=== PATIENT | male | born 1955 | race African-American/Black ===

== ENCOUNTER 2018-06-08 04:59 | Inpatient (IN) ==
[2018-06-08 06:13] LABS: Basophils # 0.1 10*3/uL (0.0-0.2); Basophils % 1.1 % (0.0-0.8); Eosinophils # 0.1 10*3/uL (0.0-0.87); Eosinophils % 1.3 % (0.00-10.9); Hematocrit 44.3 VOL% (42.0-52.0); Hemoglobin 15.1 GM/DL (14.0-18.0); Immature Granulocytes % 0.2 %; Immature Granulocytes Absolute 0.01 #; Lymphocytes # 0.8 10*3/uL (1.4-4.0); Lymphocytes % 16.7 % (21.2-54.2); Mean Corpuscular HGB Conc 34.1 GM/DL (32-36); Mean Corpuscular Hemoglobin 33 PG (27-34); Mean Corpuscular Volume 95.9 FL (87-102); Mean Platelet Volume 9.7 FL (9.6-12.0); Monocytes # 0.3 10*3/uL (0.11-0.8); Monocytes % 6.9 % (1.7-12.7); Neutrophils # 3.4 10*3/uL (1.4-7.4); Neutrophils % 73.8 % (38.7-73.9); Platelet Count 214 T/CUMM (130-400); Red Blood Count 4.62 MC/CUMM (3.8-5.5); Red Cell Distribution Width 14.8 % (9.3-17.3); White Blood Count 4.6 T/CUMM (4-12)
[2018-06-08 06:21] LABS: PT Patient Result 10.3 SECS; Partial Thromboplastin Time 24.4 SECS (0-40)
[2018-06-08 06:46] LABS: Albumin 3.4 G/DL (3.4-5.0); Bilirubin,Total 0.5 MG/DL (0.2-1.0); Calcium 8.9 MG/DL (8.5-10.1); Osmolality,Calculated 272.7 MOS/KG (273-304); Potassium 3.8 MMOL/L (3.5-5.1); Total Protein 7.7 G/DL (6.4-8.3)
[2018-06-08] MEDS ORDERED: CYCLOBENZAPRINE 10 MG TABLET PO PRN (10:02)
[2018-06-08] MEDS ORDERED: ONDANSETRON 4 MG/2 ML VIAL IV PRN (10:02)
[2018-06-08 10:44] LABS: Troponin I Only < 0.015 NG/ML (0.00-0.045)
[2018-06-08] MEDS: ASPIRIN EC 325 MG TABLET PO SCH (14:15)
[2018-06-08] MEDS: BISACODYL 5 MG TABLET PO SCH (14:15)
[2018-06-08] MEDS: PANTOPRAZOLE 40 MG TABLET PO SCH (14:16)
[2018-06-08 14:29] LABS: Apearance,Urine CLEAR (Clear); Bilirubin,Urine Negative (Negative); Blood, Urine Negative (Negative); Glucose,Urine (UA) Negative (Negative); Ketones,Urine Negative (Negative); Mucus,Urine Occasional /LPF (Occasional); Nitrite,Urine Negative (Negative); Protein,Urine Negative; RBC,Urine <1 /HPF (0-4); Squamous Epithelial Cell,Urine Occasional /HPF (0-10); Urine Color Yellow (Yellow); Urine Specific Gravity 1.011 (1.001-1.035); Urine Urobilinogen < 2.0 EU/DL (0.2-1.0); WBC,Urine 1 /HPF (0-6)
[2018-06-08] MEDS: LOVASTATIN 20 MG TABLET PO SCH (17:33)
[2018-06-08 19:21] LABS: Barbiturates Screen,Urine Negative (Negative); Benzodiazepines Screen,Urine Negative (Negative); Cannabinoid Screen,Urine Positive (Negative); Opiate Screen,Urine Negative (Negative); Phencyclidine Screen,Urine Negative (Negative)
[2018-06-08] MEDS: ENOXAPARIN 40 MG/0.4 ML SYRINGE SUBCUT SCH (21:01)
[2018-06-09 02:42] LABS: Basophils % 0.9 % (0.0-0.8); Eosinophils # 0.1 10*3/uL (0.0-0.87); Eosinophils % 2.3 % (0.00-10.9); Hematocrit 46.6 VOL% (42.0-52.0); Hemoglobin 15.8 GM/DL (14.0-18.0); Immature Granulocytes % 0.2 %; Immature Granulocytes Absolute 0.01 #; Lymphocytes % 23.5 % (21.2-54.2); Mean Corpuscular HGB Conc 33.9 GM/DL (32-36); Mean Corpuscular Hemoglobin 33 PG (27-34); Mean Corpuscular Volume 96.7 FL (87-102); Mean Platelet Volume 9.7 FL (9.6-12.0); Monocytes # 0.4 10*3/uL (0.11-0.8); Monocytes % 10.2 % (1.7-12.7); Neutrophils # 2.7 10*3/uL (1.4-7.4); Neutrophils % 62.9 % (38.7-73.9); Platelet Count 230 T/CUMM (130-400); Red Blood Count 4.82 MC/CUMM (3.8-5.5); Red Cell Distribution Width 14.7 % (9.3-17.3); White Blood Count 4.3 T/CUMM (4-12)
[2018-06-09 03:24] LABS: Albumin 3.4 G/DL (3.4-5.0); Bilirubin,Total 1.8 MG/DL (0.2-1.0); Calcium 9.4 MG/DL (8.5-10.1); Osmolality,Calculated 269.8 MOS/KG (273-304); Potassium 3.8 MMOL/L (3.5-5.1); Risk Ratio 3.46; VLDL CHOLESTEROL 20.4 MG/DL
[2018-06-09 04:49] LABS: Troponin I Only < 0.015 NG/ML (0.00-0.045)
[2018-06-09] MEDS: PANTOPRAZOLE 40 MG TABLET PO SCH (08:57)
[2018-06-09] MEDS: ASPIRIN EC 325 MG TABLET PO SCH (08:57)
[2018-06-09] MEDS: BISACODYL 5 MG TABLET PO SCH (09:32)
[2018-06-09] MEDS: LISINOPRIL/HCTZ 20-12.5 MG TABLET PO SCH (18:14)
[2018-06-09] MEDS: LOVASTATIN 20 MG TABLET PO SCH (18:14)
[2018-06-09] MEDS: ENOXAPARIN 40 MG/0.4 ML SYRINGE SUBCUT SCH (20:13)
[2018-06-10 05:22] LABS: Eosinophils # 0.2 10*3/uL (0.0-0.87); Eosinophils % 4.4 % (0.00-10.9); Hematocrit 47.2 VOL% (42.0-52.0); Hemoglobin 16.4 GM/DL (14.0-18.0); Immature Granulocytes % 0.2 %; Immature Granulocytes Absolute 0.01 #; Lymphocytes # 1.2 10*3/uL (1.4-4.0); Lymphocytes % 29.9 % (21.2-54.2); Mean Corpuscular HGB Conc 34.7 GM/DL (32-36); Mean Corpuscular Hemoglobin 33 PG (27-34); Mean Corpuscular Volume 94.2 FL (87-102); Mean Platelet Volume 10.1 FL (9.6-12.0); Monocytes # 0.5 10*3/uL (0.11-0.8); Monocytes % 11.9 % (1.7-12.7); Neutrophils # 2.2 10*3/uL (1.4-7.4); Neutrophils % 52.6 % (38.7-73.9); Platelet Count 233 T/CUMM (130-400); Red Blood Count 5.01 MC/CUMM (3.8-5.5); Red Cell Distribution Width 14.7 % (9.3-17.3); White Blood Count 4.1 T/CUMM (4-12)
[2018-06-10 06:08] LABS: Calcium 9.3 MG/DL (8.5-10.1); Potassium 3.7 MMOL/L (3.5-5.1)
[2018-06-10] MEDS: PANTOPRAZOLE 40 MG TABLET PO SCH (08:45)
[2018-06-10] MEDS: BISACODYL 5 MG TABLET PO SCH (08:45)
[2018-06-10] MEDS: LISINOPRIL/HCTZ 20-12.5 MG TABLET PO SCH (08:45)
[2018-06-10] MEDS: ASPIRIN EC 325 MG TABLET PO SCH (08:45)
[2018-06-10] MEDS: LOVASTATIN 20 MG TABLET PO SCH (18:41)
[2018-06-10] MEDS: ENOXAPARIN 40 MG/0.4 ML SYRINGE SUBCUT SCH (20:27)
[2018-06-11] MEDS: ASPIRIN EC 325 MG TABLET PO SCH (09:10)
[2018-06-11] MEDS: LISINOPRIL/HCTZ 20-12.5 MG TABLET PO SCH (09:10)
[2018-06-11] MEDS: PANTOPRAZOLE 40 MG TABLET PO SCH (09:10)
[2018-06-11] MEDS: BISACODYL 5 MG TABLET PO SCH (09:10)
[2018-06-11 15:49] VITALS: BP 119/72
== END 2018-06-11 17:03 | DRG 65 ==
LOC: EDBD → EDUNIT# → N.ED 04:59 → N.EDINP 08:33 → N.4E 09:36
PROVIDERS: ADMIT Internal Medicine; ATTEND Internal Medicine

== ENCOUNTER 2021-10-04 12:52 | Inpatient (IN) ==
[2021-10-04] MEDS ORDERED: SODIUM CHLORIDE 0.9% 1,000 ML IV STA ×2 (14:16→14:24)
[2021-10-04] MEDS ORDERED: MEROPENEM 1,000 MG in SODIUM CHLORIDE 0.9% 100 ML IV STA ×2 (14:16→14:46)
[2021-10-04 14:37] LABS: Hematocrit 30.3 VOL% (42.0-52.0); Hemoglobin 10.1 GM/DL (14.0-18.0); Immature Granulocytes % 0.7 %; Immature Granulocytes Absolute 0.04 #; Lymphocytes # 0.6 10*3/uL (1.4-4.0); Lymphocytes % 9.2 % (21.2-54.2); Mean Corpuscular HGB Conc 33.3 GM/DL (32-36); Mean Corpuscular Volume 90.7 FL (87-102); Mean Platelet Volume 11.6 FL (9.6-12.0); Monocytes % 2.8 % (1.7-12.7); Neutrophils % 87.3 % (38.7-73.9); Platelet Count 127 T/CUMM (130-400); Red Blood Count 3.34 MC/CUMM (3.8-5.5); Red Cell Distribution Width 13.6 % (9.3-17.3)
[2021-10-04 15:00] LABS: Alanine Aminotransferase 36 U/L (16-61); Albumin 1.9 G/DL (3.4-5.0); Alkaline Phosphatase 67 U/L (45-117); Aspartate Amino Transferase 67 U/L (0-37); Blood Urea Nitrogen 18 MG/DL (7-18); Calcium 9.3 MG/DL (8.5-10.1); Carbon Dioxide 25 MMOL/L (21-32); Estimated Glom Filtration Rate 115 ML/MIN; Glucose 72 MG/DL (74-106); Potassium 3.4 MMOL/L (3.5-5.1); Sodium 136 MMOL/L (136-145); Total Protein 7.5 G/DL (6.4-8.2)
[2021-10-04] MEDS ORDERED: DEXTROSE 50% 25 GM/50 ML SYRINGE IV PRN (15:49)
[2021-10-04] MEDS ORDERED: hydrALAZINE 20 MG/1 ML VIAL IV PRN (15:49)
[2021-10-04] MEDS ORDERED: ACETAMINOPHEN 325 MG TABLET PO PRN (15:49)
[2021-10-04] MEDS ORDERED: ONDANSETRON 4 MG/2 ML VIAL IV PRN (15:49)
[2021-10-04] MEDS ORDERED: GLUCAGON 1 MG VIAL IM PRN (15:49)
[2021-10-04] MEDS ORDERED: POTASSIUM CHLORIDE 20 MEQ TABLET PO ONE (15:52)
[2021-10-04 16:17] LABS: Amorphous Crystals,Urine Occasional /HPF (Few); Bilirubin,Urine Negative (Negative); Blood, Urine Negative (Negative); Glucose,Urine (UA) Negative (Negative); Hyaline Casts,Urine 1 /LPF (0-3); Ketones,Urine 20 mg/dL (Negative); Mucus,Urine Occasional /LPF (Occasional); Nitrite,Urine Negative (Negative); Protein,Urine Negative; Squamous Epithelial Cell,Urine Occasional /HPF (0-10); Urine Appearance CLEAR (Clear); Urine Color Yellow (Yellow); Urine Specific Gravity 1.024 (1.001-1.035); Urine Urobilinogen < 2.0 EU/DL (0.2-1.0)
[2021-10-04] MEDS: PIPERACILLIN/TAZOBACTAM 3,375 MG in SODIUM CHLORIDE 0.9% 100 ML IV SCH (17:00)
[2021-10-04] MEDS: LACTATED RINGERS 1,000 ML IV SCH (17:45)
[2021-10-04] MEDS: VANCOMYCIN INJ 500 MG in SODIUM CHLORIDE 0.9% 100 ML IV SCH (21:06)
[2021-10-05] MEDS: PIPERACILLIN/TAZOBACTAM 3,375 MG in SODIUM CHLORIDE 0.9% 100 ML IV SCH ×4 (00:32→23:33)
[2021-10-05 06:44] LABS: Basophils % 0.1 % (0.0-0.8); Hematocrit 27.9 VOL% (42.0-52.0); Hemoglobin 9.3 GM/DL (14.0-18.0); Immature Granulocytes % 0.6 %; Immature Granulocytes Absolute 0.09 #; Lymphocytes # 0.3 10*3/uL (1.4-4.0); Lymphocytes % 2.1 % (21.2-54.2); Mean Corpuscular HGB Conc 33.3 GM/DL (32-36); Mean Corpuscular Volume 92.4 FL (87-102); Mean Platelet Volume 11.6 FL (9.6-12.0); Monocytes % 3.6 % (1.7-12.7); Neutrophils % 93.6 % (38.7-73.9); Platelet Count 123 T/CUMM (130-400); Red Blood Count 3.02 MC/CUMM (3.8-5.5); Red Cell Distribution Width 13.6 % (9.3-17.3)
[2021-10-05 06:47] LABS: INR 1.2; PT Patient Result 13.3 SECS (10.5-12.0)
[2021-10-05 07:08] LABS: Albumin 1.7 G/DL (3.4-5.0); Bilirubin,Total 1.1 MG/DL (0.20-1.00); Calcium 8.7 MG/DL (8.5-10.1); Hypochromasia 1+; Lymphocytes 1 % (20-55); Microcytosis 1+; Osmolality,Calculated 270.8 MOS/KG (273-304); Platelet Estimate Normal; Potassium 3.5 MMOL/L (3.5-5.1); Segmented Neutrophils 98 % (50-85); Total Cells Counted 100; Total Protein 6.7 G/DL (6.4-8.2)
[2021-10-05] MEDS: LACTATED RINGERS 1,000 ML IV SCH ×2 (10:48→15:28)
[2021-10-05] MEDS: PANTOPRAZOLE 40 MG TABLET PO SCH (10:51)
[2021-10-05] MEDS: NICOTINE 21 MG/24 HR PATCH TRANSDERM SCH (10:52)
[2021-10-05] MEDS: VANCOMYCIN INJ 500 MG in SODIUM CHLORIDE 0.9% 100 ML IV SCH ×2 (15:27→22:24)
[2021-10-05] MEDS: MENTHOL/ZINC OXIDE OINT 71 GM JAR TOP SCH (15:40)
[2021-10-06] MEDS: LACTATED RINGERS 1,000 ML IV SCH ×2 (04:17→17:36)
[2021-10-06 04:22] LABS: Hematocrit 25.1 VOL% (42.0-52.0); Hemoglobin 8.5 GM/DL (14.0-18.0); Immature Granulocytes % 0.4 %; Immature Granulocytes Absolute 0.03 #; Lymphocytes # 0.6 10*3/uL (1.4-4.0); Lymphocytes % 7.1 % (21.2-54.2); Mean Corpuscular HGB Conc 33.9 GM/DL (32-36); Mean Corpuscular Volume 90.6 FL (87-102); Mean Platelet Volume 12.1 FL (9.6-12.0); Neutrophils % 88.5 % (38.7-73.9); Platelet Count 104 T/CUMM (130-400); Red Blood Count 2.77 MC/CUMM (3.8-5.5); Red Cell Distribution Width 13.4 % (9.3-17.3); White Blood Count 8.3 T/CUMM (4-12)
[2021-10-06 04:46] LABS: Albumin 1.5 G/DL (3.4-5.0); Calcium 8.7 MG/DL (8.5-10.1); Potassium 3.1 MMOL/L (3.5-5.1); Total Protein 6.2 G/DL (6.4-8.2)
[2021-10-06 05:16] LABS: Band Neutrophils 1 % (0-10); Lymphocytes 12 % (20-55); Platelet Estimate Adequate; Segmented Neutrophils 86 % (50-85); Total Cells Counted 100
[2021-10-06] MEDS: MENTHOL/ZINC OXIDE OINT 71 GM JAR TOP SCH ×3 (05:43→19:20)
[2021-10-06] MEDS: amLODIPine 5 MG TABLET PO SCH (11:13)
[2021-10-06] MEDS: MULTIVITAMIN (CENTRUM) TABLET PO SCH (11:13)
[2021-10-06] MEDS: PANTOPRAZOLE 40 MG TABLET PO SCH (11:13)
[2021-10-06] MEDS: NICOTINE 21 MG/24 HR PATCH TRANSDERM SCH (11:13)
[2021-10-06] MEDS ORDERED: LACTATED RINGERS 1,000 ML IV SCH (11:30)
[2021-10-06] MEDS: PIPERACILLIN/TAZOBACTAM 3,375 MG in SODIUM CHLORIDE 0.9% 100 ML IV SCH ×2 (14:50→19:24)
[2021-10-06] MEDS ORDERED: HYDROmorphone 2 MG/1 ML VIAL IV PRN (14:53)
[2021-10-06] MEDS: VANCOMYCIN INJ 500 MG in SODIUM CHLORIDE 0.9% 100 ML IV SCH (16:05)
[2021-10-07 03:11] LABS: Eosinophils % 0.2 % (0.00-10.9); Hemoglobin 7.6 GM/DL (14.0-18.0); Immature Granulocytes % 0.4 %; Immature Granulocytes Absolute 0.02 #; Lymphocytes # 0.5 10*3/uL (1.4-4.0); Lymphocytes % 10.3 % (21.2-54.2); Mean Corpuscular Volume 90.2 FL (87-102); Mean Platelet Volume 12.3 FL (9.6-12.0); Monocytes % 5.6 % (1.7-12.7); Neutrophils % 83.5 % (38.7-73.9); Red Blood Count 2.55 MC/CUMM (3.8-5.5); Red Cell Distribution Width 13.6 % (9.3-17.3); White Blood Count 5.1 T/CUMM (4-12)
[2021-10-07 03:12] LABS: Platelet Count 90 T/CUMM (130-400)
[2021-10-07 03:29] LABS: Albumin 1.4 G/DL (3.4-5.0); Bilirubin,Total 0.6 MG/DL (0.20-1.00); Calcium 8.4 MG/DL (8.5-10.1); Osmolality,Calculated 268.1 MOS/KG (273-304); Potassium 3.1 MMOL/L (3.5-5.1); Total Protein 5.8 G/DL (6.4-8.2)
[2021-10-07 03:45] LABS: Hypochromasia 1+; Platelet Estimate Decreased
[2021-10-07 03:46] LABS: Microcytosis 1+
[2021-10-07] MEDS: LACTATED RINGERS 1,000 ML IV SCH ×2 (04:05→04:19)
[2021-10-07] MEDS: PIPERACILLIN/TAZOBACTAM 3,375 MG in SODIUM CHLORIDE 0.9% 100 ML IV SCH ×3 (04:22→22:36)
[2021-10-07] MEDS: amLODIPine 5 MG TABLET PO SCH (08:57)
[2021-10-07] MEDS: PANTOPRAZOLE 40 MG TABLET PO SCH (08:57)
[2021-10-07] MEDS: MULTIVITAMIN (CENTRUM) TABLET PO SCH (08:57)
[2021-10-07] MEDS: NICOTINE 21 MG/24 HR PATCH TRANSDERM SCH (08:57)
[2021-10-07] MEDS: MENTHOL/ZINC OXIDE OINT 71 GM JAR TOP SCH ×2 (09:01→22:17)
[2021-10-07] MEDS ORDERED: POTASSIUM CHLORIDE 20 MEQ TABLET PO ONE (09:48)
[2021-10-07 10:08] LABS: Folate 3.2 NG/ML (5.38-24.0)
[2021-10-07 11:08] LABS: Ferritin 365.2 ng/mL (26-388)
[2021-10-07 11:56] LABS: Hematocrit 24.1 VOL% (42.0-52.0); Hemoglobin 8.1 GM/DL (14.0-18.0)
[2021-10-07] MEDS: FOLIC ACID 1 MG TABLET PO SCH (14:32)
[2021-10-07] MEDS: FERRIC GLUCONATE COMPLEX 125 MG in SODIUM CHLORIDE 0.9% 100 ML IV SCH (17:54)
[2021-10-08] MEDS: PIPERACILLIN/TAZOBACTAM 3,375 MG in SODIUM CHLORIDE 0.9% 100 ML IV SCH ×3 (04:24→20:01)
[2021-10-08 06:11] LABS: Hematocrit 26.7 VOL% (42.0-52.0); Immature Granulocytes % 0.2 %; Immature Granulocytes Absolute 0.01 #; Lymphocytes # 0.5 10*3/uL (1.4-4.0); Lymphocytes % 9.2 % (21.2-54.2); Mean Corpuscular HGB Conc 33.7 GM/DL (32-36); Mean Corpuscular Volume 90.5 FL (87-102); Monocytes % 4.4 % (1.7-12.7); Neutrophils % 86.2 % (38.7-73.9); Platelet Count 100 T/CUMM (130-400); Red Blood Count 2.95 MC/CUMM (3.8-5.5); Red Cell Distribution Width 13.7 % (9.3-17.3)
[2021-10-08 06:22] LABS: Calcium 8.4 MG/DL (8.5-10.1); Osmolality,Calculated 274.7 MOS/KG (273-304); Potassium 3.6 MMOL/L (3.5-5.1)
[2021-10-08 06:40] LABS: Hypochromasia 1+; Microcytosis 1+; Platelet Estimate Decreased
[2021-10-08] MEDS: PANTOPRAZOLE 40 MG TABLET PO SCH (08:57)
[2021-10-08] MEDS: MULTIVITAMIN (CENTRUM) TABLET PO SCH (08:57)
[2021-10-08] MEDS: NICOTINE 21 MG/24 HR PATCH TRANSDERM SCH (08:57)
[2021-10-08] MEDS: FOLIC ACID 1 MG TABLET PO SCH (08:57)
[2021-10-08] MEDS: amLODIPine 5 MG TABLET PO SCH (08:57)
[2021-10-08] MEDS: MENTHOL/ZINC OXIDE OINT 71 GM JAR TOP SCH ×2 (09:15→22:25)
[2021-10-08] MEDS: FERRIC GLUCONATE COMPLEX 125 MG in SODIUM CHLORIDE 0.9% 100 ML IV SCH (10:54)
[2021-10-09] MEDS: PIPERACILLIN/TAZOBACTAM 3,375 MG in SODIUM CHLORIDE 0.9% 100 ML IV SCH ×3 (03:27→20:33)
[2021-10-09 07:16] LABS: Eosinophils % 0.3 % (0.00-10.9); Hematocrit 24.1 VOL% (42.0-52.0); Hemoglobin 8.1 GM/DL (14.0-18.0); Immature Granulocytes % 0.3 %; Immature Granulocytes Absolute 0.01 #; Lymphocytes # 0.7 10*3/uL (1.4-4.0); Lymphocytes % 22.2 % (21.2-54.2); Mean Corpuscular HGB Conc 33.6 GM/DL (32-36); Mean Corpuscular Volume 90.9 FL (87-102); Mean Platelet Volume 11.8 FL (9.6-12.0); Monocytes % 7.4 % (1.7-12.7); Neutrophils % 69.8 % (38.7-73.9); Platelet Count 100 T/CUMM (130-400); Red Blood Count 2.65 MC/CUMM (3.8-5.5); Red Cell Distribution Width 14.3 % (9.3-17.3); White Blood Count 3.1 T/CUMM (4-12)
[2021-10-09 07:21] LABS: Calcium 8.5 MG/DL (8.5-10.1); Osmolality,Calculated 265.2 MOS/KG (273-304); Potassium 3.7 MMOL/L (3.5-5.1)
[2021-10-09 07:38] LABS: Hypochromasia 1+; Microcytosis 1+; Platelet Estimate Decreased
[2021-10-09] MEDS: NICOTINE 21 MG/24 HR PATCH TRANSDERM SCH (08:42)
[2021-10-09] MEDS: FOLIC ACID 1 MG TABLET PO SCH (08:42)
[2021-10-09] MEDS: MENTHOL/ZINC OXIDE OINT 71 GM JAR TOP SCH ×2 (08:42→20:34)
[2021-10-09] MEDS: PANTOPRAZOLE 40 MG TABLET PO SCH (08:42)
[2021-10-09] MEDS: MULTIVITAMIN (CENTRUM) TABLET PO SCH (08:42)
[2021-10-09] MEDS: amLODIPine 5 MG TABLET PO SCH (08:42)
[2021-10-09] MEDS: PANTOPRAZOLE 40 MG VIAL IV SCH ×2 (09:49→20:35)
[2021-10-09] MEDS: FERRIC GLUCONATE COMPLEX 125 MG in SODIUM CHLORIDE 0.9% 100 ML IV SCH (10:10)
[2021-10-09] MEDS: ATORVASTATIN 40 MG TABLET PO SCH (20:35)
[2021-10-10] MEDS: PIPERACILLIN/TAZOBACTAM 3,375 MG in SODIUM CHLORIDE 0.9% 100 ML IV SCH (03:34)
[2021-10-10 06:27] LABS: Eosinophils % 0.7 % (0.00-10.9); Hematocrit 24.8 VOL% (42.0-52.0); Hemoglobin 8.2 GM/DL (14.0-18.0); Immature Granulocytes % 0.3 %; Immature Granulocytes Absolute 0.01 #; Lymphocytes # 0.8 10*3/uL (1.4-4.0); Lymphocytes % 27.4 % (21.2-54.2); Mean Corpuscular HGB Conc 33.1 GM/DL (32-36); Mean Corpuscular Volume 90.8 FL (87-102); Mean Platelet Volume 11.1 FL (9.6-12.0); Monocytes % 6.9 % (1.7-12.7); Neutrophils % 64.7 % (38.7-73.9); Platelet Count 131 T/CUMM (130-400); Red Blood Count 2.73 MC/CUMM (3.8-5.5); Red Cell Distribution Width 14.1 % (9.3-17.3); White Blood Count 2.9 T/CUMM (4-12)
[2021-10-10] MEDS: LACTATED RINGERS 1,000 ML IV SCH (06:39)
[2021-10-10 06:53] LABS: Albumin 1.6 G/DL (3.4-5.0); Bilirubin,Total 1.2 MG/DL (0.20-1.00); Calcium 8.7 MG/DL (8.5-10.1); Osmolality,Calculated 264.2 MOS/KG (273-304); Potassium 3.6 MMOL/L (3.5-5.1); Total Protein 6.5 G/DL (6.4-8.2)
[2021-10-10 06:59] LABS: Eosinophils 2 % (0-10); Lymphocytes 25 % (20-55); Nucleated Red Blood Cells 1 (0-5); Segmented Neutrophils 63 % (50-85); Total Cells Counted 100
[2021-10-10 07:00] LABS: Hypochromasia 1+; Microcytosis 1+; Platelet Estimate Adequate
[2021-10-10] MEDS: amLODIPine 5 MG TABLET PO SCH (08:43)
[2021-10-10] MEDS: FOLIC ACID 1 MG TABLET PO SCH (08:44)
[2021-10-10] MEDS: MULTIVITAMIN (CENTRUM) TABLET PO SCH (08:44)
[2021-10-10] MEDS: MENTHOL/ZINC OXIDE OINT 71 GM JAR TOP SCH ×2 (08:44→20:47)
[2021-10-10] MEDS: PANTOPRAZOLE 40 MG VIAL IV SCH ×2 (08:44→20:47)
[2021-10-10] MEDS ORDERED: propofoL 200 MG/20 ML VIAL IV ONE (09:33)
[2021-10-10] MEDS ORDERED: LIDOCAINE 2% 5 ML VIAL ONE (09:33)
[2021-10-10] MEDS ORDERED: ETOMIDATE 20 MG/10 ML VIAL IV ONE (09:33)
[2021-10-10] MEDS ORDERED: PHENYLEPHRINE 1 MG/10 ML SYRINGE IV ONE (09:34)
[2021-10-10] MEDS: NICOTINE 21 MG/24 HR PATCH TRANSDERM SCH (11:18)
[2021-10-10] MEDS: BISACODYL 5 MG TABLET PO SCH ×2 (11:18→17:55)
[2021-10-10] MEDS: FERRIC GLUCONATE COMPLEX 125 MG in SODIUM CHLORIDE 0.9% 100 ML IV SCH (11:19)
[2021-10-10] MEDS ORDERED: POLYETHYLENE GLYCOL POWDER 255 GM BOTTLE PO ONE (18:00)
[2021-10-10] MEDS: ATORVASTATIN 40 MG TABLET PO SCH (20:47)
[2021-10-11] MEDS: BISACODYL 5 MG TABLET PO SCH (01:58)
[2021-10-11 05:50] LABS: Eosinophils % 0.7 % (0.00-10.9); Hemoglobin 8.4 GM/DL (14.0-18.0); Immature Granulocytes % 0.5 %; Immature Granulocytes Absolute 0.02 #; Lymphocytes # 0.7 10*3/uL (1.4-4.0); Lymphocytes % 15.9 % (21.2-54.2); Mean Corpuscular HGB Conc 33.6 GM/DL (32-36); Mean Corpuscular Volume 89.6 FL (87-102); Mean Platelet Volume 11.2 FL (9.6-12.0); Monocytes % 6.6 % (1.7-12.7); Neutrophils % 76.3 % (38.7-73.9); Platelet Count 147 T/CUMM (130-400); Red Blood Count 2.79 MC/CUMM (3.8-5.5); White Blood Count 4.1 T/CUMM (4-12)
[2021-10-11 06:07] LABS: Calcium 8.6 MG/DL (8.5-10.1); Osmolality,Calculated 263.4 MOS/KG (273-304); Potassium 3.2 MMOL/L (3.5-5.1)
[2021-10-11] MEDS: LACTATED RINGERS 1,000 ML IV SCH ×3 (07:15→07:56)
[2021-10-11] MEDS ORDERED: LIDOCAINE 2% 5 ML VIAL ONE (07:59)
[2021-10-11] MEDS ORDERED: propofoL 200 MG/20 ML VIAL IV ONE (07:59)
[2021-10-11] MEDS ORDERED: ETOMIDATE 20 MG/10 ML VIAL IV ONE (07:59)
[2021-10-11] MEDS: MULTIVITAMIN (CENTRUM) TABLET PO SCH (08:11)
[2021-10-11] MEDS: FOLIC ACID 1 MG TABLET PO SCH (08:11)
[2021-10-11] MEDS: amLODIPine 5 MG TABLET PO SCH (08:11)
[2021-10-11] MEDS ORDERED: PHENYLEPHRINE 1 MG/10 ML SYRINGE IV ONE (08:46)
[2021-10-11] MEDS ORDERED: POTASSIUM CHLORIDE 20 MEQ TABLET PO ONE (09:15)
[2021-10-11] MEDS: FERRIC GLUCONATE COMPLEX 125 MG in SODIUM CHLORIDE 0.9% 100 ML IV SCH (10:14)
[2021-10-11] MEDS: PANTOPRAZOLE 40 MG VIAL IV SCH (10:14)
[2021-10-11] MEDS: NICOTINE 21 MG/24 HR PATCH TRANSDERM SCH (10:14)
[2021-10-11] MEDS: MENTHOL/ZINC OXIDE OINT 71 GM JAR TOP SCH (10:14)
[2021-10-11 11:56] VITALS: BP 126/83
== END 2021-10-11 14:46 | DRG 239 ==
LOC: EDBD → EDUNIT# → N.ED 12:52 → N.EDINP 15:49 → SUATTDRO 15:49 → N.TELEN 20:05 → N.3E 10-05 16:38
PROVIDERS: ADMIT Internal Medicine; ATTEND Internal Medicine